=== PATIENT | female | born 1995 | race Caucasian/White ===

== ENCOUNTER → 2016-10-24 | Outpatient (CLI) | payer OTHER ==
[~2016-10-24] MED LIST: PRENTAB26 PO
== END | disposition home or self-care (01) ==
LOC: C.LABSPEC 15:49
PROVIDERS: ATTEND Obstetrics & Gynecology
DX: Z34.83 Encounter for supervision of other normal pregnancy, third trimester (principal)

== ENCOUNTER 2016-11-25 05:40 | Inpatient (IN) | payer OTHER ==
--- NOTE | 2016-11-19 14:54 | HISTORY & PHYSICAL EXAMINATION ---
DATE OF ADMISSION: 11/25/2016 CHIEF COMPLAINT: Repeat , intrauterine at 39 weeks gestation. HISTORY OF PRESENT ILLNESS: The patient is a 20-year-old 2, para 1. Her general health is good. She is only on vitamins. She has had the majority of her care in the [facility]. She has regular periods. They are a little bit on the short side, 27-28 days, last menstrual period was 02/25/2016, which gives her a due date of 12/02/2016. She states she had a first trimester ultrasound and a 20-week ultrasound, which essentially confirmed her due date of 12/02/2016. Presently being scheduled for repeat low segment section. Her obstetrical history is as follows, 2011 she went into labor at 40-1/2 weeks. She had about 14 hours labor. She pushed for over 3 hours and she was unable to bring the head down and eventually was taken to the OR where they did a with a diagnosis of cephalopelvic disproportion, she had an 8 pounds boy. PAST MEDICAL HISTORY: She has a son 4 years old in good health. No known drug allergies. She has had no medical issues. PAST SURGICAL HISTORY: She has had a previous . SOCIAL HISTORY: No smoking. No excessive alcohol intake. Works at home. FAMILY HISTORY: Mom is 52 in good health. Father at age 50 after having neck surgery. She has 2 brothers in good health. REVIEW OF SYSTEMS: HEAD: No symptoms of frequent or severe headaches. EYES: No symptoms, double vision, blurred vision. EARS: No symptoms of frequent ear infections, difficulty hearing. NOSE: No symptoms of frequent nosebleeds, difficulty breathing through her nose. PHYSICAL EXAMINATION: GENERAL: Well developed, well-nourished 20-year-old white female, alert, oriented x3 and cooperative in no acute distress, appears her stated age. EYES: Conjunctivae are pink, sclerae white, no evidence of jaundice. EARS: Had normal light reflex bilaterally. NOSE: Had normal mucosa. Septum is midline. There were no polyps. THROAT: No erythema or evidence of infection. Teeth are in good state of repair. HEAD: Was normocephalic, normal distribution of hair. NECK: Supple. Trachea midline. Thyroid is not enlarged. There is no adenopathy appreciated. Both carotids are of good intensity. CHEST: Clear to auscultation and percussion. No wheezes, rales or rhonchi appreciated. HEART: Had a regular rhythm. S1 and S2 are normal. BREASTS: Normal. ABDOMEN: Was nontender. It was consistent in size with a term sized fetus. There is a well-healed Pfannenstiel scar. PELVIC: Revealed a vertex presentation, floating. Cervix 2-3 cm. MUSCULOSKELETAL: Revealed no calf tenderness. IMPRESSIONS OF THIS CASE: Intrauterine , 39 weeks gestation, previous section due to cephalopelvic disproportion.
[2016-11-19 14:58] VITALS: BMI 28.0
[2016-11-19 15:38] LABS: BASO % 0.1 %; BASO ABS # 0.01 K/uL (0-0.2); COMPLETE YES; EOS % 0.4 %; HEMATOCRIT 37.5 % (37-47); IG% 0.3 %; LYMPH % 14.8 %; LYMPH ABS # 1.62 K/uL (1.2-3.4); MEAN CELL VOLUME 88.2 fL (80-100); MEAN CORPUSCULAR HEMOGLOBIN 29.2 pg (25-34); MEAN CORPUSCULAR HGB CONC 33.1 g/dl (32-36); MEAN PLATELET VOLUME 10.2 fL (7.4-10.4); MONO % 7.2 %; NEUT % 77.2 %; PLATELET COUNT 291 K/uL (130-400); RED BLOOD COUNT 4.25 M/uL (4.2-5.4); WHITE BLOOD COUNT 10.97 K/uL (4.8-10.8)
[2016-11-19 15:51] LABS: INR 0.9 (0.9-1.1); PROTHROMBIN TIME (PATIENT) 9.7 SECONDS (9.0-12.0)
[2016-11-19 16:06] LABS: BLOOD UREA NITROGEN 4 mg/dl (7-18); BUN/CREATININE RATIO 7.8 (10-20); CALCIUM 8.3 mg/dl (8.5-10.1); CARBON DIOXIDE 21 mmol/L (21-32); CHLORIDE 103 mmol/L (98-107); CREATININE 0.49 mg/dl (0.60-1.20); GLUCOSE 67 mg/dl (70-99); POTASSIUM 4.2 mmol/L (3.5-5.1); SODIUM 135 mmol/L (136-145)
[~2016-11-25] VITALS: Ht 165.1 cm; Wt 78.6 kg
[2016-11-25] VITALS (14 sets, daily range): BP systolic 94–104; BP diastolic 55–62; PULSE 74–101; TEMP 36.9–37; O2SAT 96–100; Ht 165.1 cm; Wt 78.6 kg
[2016-11-25] MEDS ORDERED: LACTATED RINGER'S 1000ML 1,000 ML IV ONE ×2 (05:56→07:15)
[2016-11-25] MEDS ORDERED: LACTATED RINGER'S 1000ML 1,000 ML IV SCH (06:00)
[2016-11-25] MEDS ORDERED: CITRIC ACID/SODIUM CITRATE 15 ML UDC PO SCH (06:00)
[2016-11-25] MEDS ORDERED: CEFOXITIN IV 2000 MG in DEXTROSE 5% 50ML IV SCH (06:00)
[2016-11-25 06:12] LABS: HEMATOCRIT 34.9 % (37-47); MEAN CELL VOLUME 86.6 fL (80-100); MEAN CORPUSCULAR HEMOGLOBIN 28.5 pg (25-34); PLATELET COUNT 270 K/uL (130-400); RED BLOOD COUNT 4.03 M/uL (4.2-5.4); WHITE BLOOD COUNT 9.85 K/uL (4.8-10.8)
[2016-11-25 06:35] LABS: INR 0.9 (0.9-1.1); PROTHROMBIN TIME (PATIENT) 9.7 SECONDS (9.0-12.0)
[2016-11-25 06:46] LABS: BLOOD UREA NITROGEN 6 mg/dl (7-18); BUN/CREATININE RATIO 15.2 (10-20); CALCIUM 7.7 mg/dl (8.5-10.1); CARBON DIOXIDE 21 mmol/L (21-32); CHLORIDE 107 mmol/L (98-107); CREATININE 0.41 mg/dl (0.60-1.20); GLUCOSE 83 mg/dl (70-99); POTASSIUM 3.8 mmol/L (3.5-5.1); SODIUM 139 mmol/L (136-145)
[2016-11-25] MEDS ORDERED: OXYTOCIN INJ 10 UNITS/ML VIAL ONE ×3 (07:08→08:36)
[2016-11-25] MEDS ORDERED: FENTANYL CITRATE INJ 50 MCG/1 ML 2 ML VIAL ONE (07:09)
[2016-11-25] MEDS ORDERED: MoRPHine SULFATE PF 1 MG/ML 10 ML AMP/VIAL ONE (07:10)
[2016-11-25] MEDS ORDERED: PHENYLEPHRINE HCL INJ 10 MG/ML VIAL ONE (07:13)
[2016-11-25] MEDS ORDERED: CITRIC ACID/SODIUM CITRATE 15 ML UDC PO ONE (07:15)
[2016-11-25] MEDS ORDERED: SUPERCREAM 0.870 % 15GM JAR EXT PRN (08:45)
[2016-11-25] MEDS ORDERED: HYDROCORTISONE ACETATE 25 MG SUPP PR PRN (08:45)
[2016-11-25] MEDS ORDERED: SENNA 8.6 MG TAB PO PRN (08:45)
[2016-11-25] MEDS ORDERED: BENZOCAINE 20% AER SPR 82.5 GM CAN EXT PRN (08:45)
[2016-11-25] MEDS ORDERED: MAGNESIUM HYDROXIDE SUSP 30 ML UDC PO PRN (08:45)
[2016-11-25] MEDS ORDERED: LANOLIN OINT EXT PRN ×2 (08:45)
[2016-11-25] MEDS ORDERED: DIPHTHERIA/TETANUS/PERTUSSIS 0.5 ML SYR/VIAL IM. ONE (08:45)
[2016-11-25] MEDS ORDERED: NALOXONE HCL INJ 0.08 MG in SYRINGE 1.8 ML IV PRN (08:55)
[2016-11-25] MEDS ORDERED: NALOXONE HCL INJ 1 MG in SODIUM CHLORIDE 0.9% 1000ML 1,000 ML IV PRN ×4 (08:55)
[2016-11-25] MEDS ORDERED: LACTATED RINGER'S 1000ML 500 ML IV PRN (08:55)
[2016-11-25] MEDS ORDERED: SODIUM CHLORIDE 0.9% 1000ML 1,000 ML IV PRN (08:55)
[2016-11-25] MEDS ORDERED: EpHEDrine SULFATE INJ 50 MG/ML AMP IV PRN (09:00)
[2016-11-25] MEDS ORDERED: ONDANSETRON INJ 2 MG/ML 2 ML VIAL IV PRN (09:00)
[2016-11-25] MEDS ORDERED: NALOXONE HCL 0.4 MG/1 ML VIAL/CARP IV PRN (09:00)
[2016-11-25] MEDS ORDERED: NO NARCOTICS OR SEDATIVES SCH (09:00)
[2016-11-25] MEDS ORDERED: PROMETHAZINE HCL INJ 25 MG in SODIUM CHLORIDE 0.9% 50ML 50 ML IV PRN (09:00)
[2016-11-25] MEDS ORDERED: MoRPHine SULFATE PF 1 MG/ML 10 ML AMP/VIAL EPI PRN (09:00)
[2016-11-25] MEDS ORDERED: NALBUPHINE HCL INJ 10 MG/ML AMP IV PRN (09:00)
[2016-11-25] MEDS: SIMETHICONE 80 MG CHEW PO SCH ×4 (09:20→20:08)
[2016-11-25] MEDS: DiphenhydrAMINE HCL 50 MG/ML VIAL IV PRN ×2 (09:37→15:47)
[2016-11-25] MEDS: OXYTOCIN INJ 20 UNITS in LACTATED RINGER'S 1000ML 1,000 ML IV SCH ×2 (09:54→17:33)
--- NOTE | 2016-11-25 12:46 | OPERATIVE REPORT ---
DATE OF OPERATION: 11/25/2016 PROCEDURE PERFORMED: Repeat low segment section. INDICATIONS FOR SURGERY: Intrauterine at 39 weeks' gestation and previous for CPD. POSTOPERATIVE DIAGNOSES: Same. Delivered a live male . SURGEON: Dr. Medrano. 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 ESTIMATED BLOOD LOSS: 500 mL. ANESTHESIA: Spinal. OPERATIVE FINDINGS AND PROCEDURE: The patient was brought to the OR table, correctly identified by armband and conversation. Compression stockings were applied. A Ocampo catheter was inserted in the bladder connected to gravity drainage. Then, the lower abdomen and upper thigh were painted with an alcohol based sterilizing solution, draped in the usual sterile fashion. The Pfannenstiel incision was made through a previous scar. Hemostasis was secured by electrocauterization. Fascia was incised transversely, from underlying muscle by blunt and sharp dissection. Recti muscles were in the midline, exposing the peritoneum, which was carefully raised and entered. A decision was made above the vesicouterine fold. Bladder was undermined bluntly and the uterine cavity was entered by cutting partially through with a knife and then going into the cavity with blunt-tipped scissors and then spreading the incision laterally with fingers. Vectis retractor was inserted to the head and fundal pressure was applied. Retractor popped off once, I had to reapply it and then the head was delivered. Shoulders were delivered without difficulty. Cord was clamped and cut and the was attended to by the air and hydronic balancing technician, Dr. Evans scrubbed and present at time of delivery. Cord blood was taken. The placenta was removed manually. Uterus, tubes, and ovaries were brought out through the incision. Hemostasis was good. The myometrial defect was approximated by using a continuous interlocking suture of chromic catgut to approximate the muscle, then a continuous heavy duty Vicryl suture was used to approximate the fascia over the myometrial approximation and then about 3 interrupted [id number] sutures of heavy duty Vicryl were used to complete the approximation and secure hemostasis. Peritoneal edges were then restored with 3-0 chromic. The pelvis was cleansed of all blood clots and debris. Uterus, tubes, and ovaries were reinserted into the abdominal cavity. Careful anatomical approximation of the anterior abdominal wall was performed. Peritoneum was closed with a mattress suture of chromic catgut. Recti muscles were approximated with interrupted figure of chromic catgut. The fascia was closed with continuous interlocking suture of Vicryl on each side, tied in the midline. SubQ was approximated with continuous plain and skin edges were approximated with staple clips. I attest to the content of the Intraoperative Record and any orders documented therein. Any exceptio ns are noted below.
--- NOTE | 2016-11-25 14:57 | Anesthesiology Progress Note ---
Anesthesia Post Op Note Date & Time Nov 25, 2016 at 14:57 Vital Signs Pain Intensity: 5.0 Vital Signs Past 12 Hours Date Time Temp Pulse Resp B/P Pulse Ox O2 Delivery O2 Flow Rate FiO2 11/25/16 14:00 20 99 11/25/16 13:00 20 99 11/25/16 12:20 36.9 74 22 94/55 Room Air 11/25/16 12:20 22 99 Notes Mental Status: alert / awake / arousable, participated in evaluation Pt Amnestic to Procedure: No Nausea / Vomiting: adequately controlled Pain: adequately controlled Airway Patency, RR, SpO2: stable & adequate BP & HR: stable & adequate Hydration State: stable & adequate Neuraxial Anesthesia: was administered, sensory block is resolving Anesthetic Complications: no major complications apparent
[2016-11-25] MEDS: KETOROLAC TROMETHAMINE 30 MG/ML VIAL IV. PRN (18:56)
[2016-11-25] MEDS: DOCUSATE SODIUM 100 MG CAP PO SCH (20:08)
[2016-11-26 00:30] VITALS: O2SAT 98
[2016-11-26 01:30] VITALS: O2SAT 98
[2016-11-26] MEDS: OXYTOCIN INJ 20 UNITS in LACTATED RINGER'S 1000ML 1,000 ML IV SCH (02:07)
[2016-11-26] MEDS: KETOROLAC TROMETHAMINE 30 MG/ML VIAL IV. PRN (02:10)
[2016-11-26 03:00] VITALS: O2SAT 99
[2016-11-26] MEDS ORDERED: DC INTRASPINAL MORPHINE ONE (03:00)
[2016-11-26] MEDS ORDERED: ONDANSETRON INJ 2 MG/ML 2 ML VIAL IV PRN (03:00)
[2016-11-26] MEDS ORDERED: DiphenhydrAMINE HCL 50 MG/ML VIAL IV PRN ×2 (03:00→09:00)
[2016-11-26] MEDS ORDERED: KETOROLAC TROMETHAMINE 30 MG/ML VIAL IV. PRN (03:00)
[2016-11-26] MEDS ORDERED: OXYCODONE/ACETAMINOPHEN 5-325 TAB PO PRN (03:00)
[2016-11-26] MEDS ORDERED: MEPERIDINE HCL 50 MG/ML CARP IV PRN (03:00)
[2016-11-26] MEDS ORDERED: MEPERIDINE HCL 75 MG/ML CARP IV PRN (03:00)
[2016-11-26] MEDS ORDERED: ZOLPIDEM TARTRATE 5 MG TAB PO PRN (03:00)
[2016-11-26 04:30] VITALS: BP 96/57; PULSE 89; TEMP 36.7; O2SAT 99
[2016-11-26] MEDS ORDERED: CEFOXITIN IV 2,000 MG in DEXTROSE 5% 50ML 50 ML IV SCH (06:00)
[2016-11-26 06:06] LABS: BASO % 0.1 %; BASO ABS # 0.01 K/uL (0-0.2); COMPLETE YES; EOS % 0.4 %; HEMATOCRIT 30.8 % (37-47); IG% 0.2 %; LYMPH % 9.3 %; MEAN CELL VOLUME 88.3 fL (80-100); MEAN CORPUSCULAR HEMOGLOBIN 29.2 pg (25-34); MEAN CORPUSCULAR HGB CONC 33.1 g/dl (32-36); MONO % 8.2 %; NEUT % 81.8 %; PLATELET COUNT 243 K/uL (130-400); RED BLOOD COUNT 3.49 M/uL (4.2-5.4); WHITE BLOOD COUNT 15.04 K/uL (4.8-10.8)
[2016-11-26 07:20] VITALS: BP 103/58; PULSE 88; TEMP 36.7; O2SAT 98
[2016-11-26] MEDS: DOCUSATE SODIUM 100 MG CAP PO SCH ×2 (07:54→20:14)
[2016-11-26] MEDS: FERROUS SULFATE 325 MG TAB PO SCH (07:54)
[2016-11-26] MEDS: SIMETHICONE 80 MG CHEW PO SCH ×4 (07:54→20:14)
[2016-11-26] MEDS: PRENATAL VITAMIN TAB PO SCH (07:54)
[2016-11-26] MEDS: IBUPROFEN 600 MG TAB PO PRN ×2 (07:56→18:06)
[2016-11-26] MEDS: OXYCODONE/ACETAMINOPHEN 5-325 TAB PO PRN ×3 (09:22→22:21)
--- NOTE | 2016-11-26 11:44 | Progress Note ---
Subjective Nov 26, 2016. Subjective conversation w/ patient Ambulation: ambulating normally Voiding: no voiding problems Passing Gas: Yes Diet Tolerance: Regular Diet Lochia: Small Feeding Type: Breast Feeding Review of Systems Constitutional: + fever Objective Vital Signs Date Time Temp Pulse Resp B/P Pulse Ox O2 Delivery O2 Flow Rate FiO2 11/26/16 08:30 Room Air 11/26/16 07:20 36.7 88 18 103/58 98 Room Air 11/26/16 04:30 36.7 89 18 96/57 99 Room Air 11/26/16 03:00 18 99 11/26/16 01:30 18 98 11/26/16 00:30 16 98 11/25/16 23:30 Room Air 11/25/16 23:30 37.0 101 18 104/60 98 Room Air 11/25/16 23:30 18 98 11/25/16 23:00 16 96 11/25/16 22:00 16 98 11/25/16 21:00 18 98 11/25/16 20:00 37.0 80 18 101/57 98 Room Air 11/25/16 20:00 18 98 11/25/16 19:00 18 99 11/25/16 18:00 16 100 11/25/16 17:00 20 99 11/25/16 16:00 16 99 11/25/16 15:35 99 Room Air 11/25/16 15:35 36.9 74 16 99/62 99 Room Air 11/25/16 15:00 16 100 11/25/16 14:00 20 99 11/25/16 13:00 20 99 11/25/16 12:20 36.9 74 22 94/55 Room Air 11/25/16 12:20 22 99 Physical Exam General Appearance: WELL-APPEARING Respiratory/Chest: lungs clear Abdomen: normal bowel sounds, non tender Fundus: Firm, Non-Tender Incision Description: Clean, Dry & Intact Extremities: no pedal edema, no calf tenderness Laboratory Results Last 24 Hours Test 11/26/16 05:50 White Blood Count 15.04 K/uL Red Blood Count 3.49 M/uL Hemoglobin 10.2 g/dL Hematocrit 30.8 % Mean Corpuscular Volume 88.3 fL Mean Corpuscular Hemoglobin 29.2 pg Mean Corpuscular Hemoglobin Concent 33.1 g/dl Platelet Count 243 K/uL Mean Platelet Volume 10.0 fL Neutrophils (%) (Auto) 81.8 % Lymphocytes (%) (Auto) 9.3 % Monocytes (%) (Auto) 8.2 % Eosinophils (%) (Auto) 0.4 % Basophils (%) (Auto) 0.1 % Neutrophils # (Auto) 12.31 K/uL Lymphocytes # (Auto) 1.40 K/uL Monocytes # (Auto) 1.23 K/uL Eosinophils # (Auto) 0.06 K/uL Basophils # (Auto) 0.01 K/uL RDW Standard Deviation 45.6 fL RDW Coefficient of Variation 14.1 % Immature Granulocyte % (Auto) 0.2 % Immature Granulocyte # (Auto) 0.03 K/uL Assessment and Plan Post-Op Day#: 1
[2016-11-26 16:02] VITALS: BP 102/64; PULSE 87; TEMP 36.8; O2SAT 99
[2016-11-26] MEDS ORDERED: BISACODYL 5 MG TABEC PO ONE (22:00)
[2016-11-27 00:45] VITALS: BP 100/65; PULSE 96; TEMP 36.7
[2016-11-27] MEDS: IBUPROFEN 600 MG TAB PO PRN ×3 (01:24→20:12)
[2016-11-27 07:45] VITALS: BP 96/60; PULSE 79; TEMP 36.4; O2SAT 99
[2016-11-27] MEDS: PRENATAL VITAMIN TAB PO SCH (08:03)
[2016-11-27] MEDS: DOCUSATE SODIUM 100 MG CAP PO SCH ×2 (08:03→20:11)
[2016-11-27] MEDS: OXYCODONE/ACETAMINOPHEN 5-325 TAB PO PRN ×3 (08:03→20:12)
[2016-11-27] MEDS: FERROUS SULFATE 325 MG TAB PO SCH (08:03)
[2016-11-27] MEDS: SIMETHICONE 80 MG CHEW PO SCH ×4 (08:03→20:12)
--- NOTE | 2016-11-27 08:07 | Progress Note ---
Subjective Nov 27, 2016. Subjective conversation w/ patient Ambulation: ambulating normally Voiding: no voiding problems Passing Gas: Yes Diet Tolerance: Regular Diet Lochia: Small Feeding Type: Breast Feeding Review of Systems Constitutional: + fever Objective Vital Signs Date Time Temp Pulse Resp B/P Pulse Ox O2 Delivery O2 Flow Rate FiO2 11/27/16 07:45 36.4 79 18 96/60 99 Room Air 11/27/16 00:45 Room Air 11/27/16 00:45 36.7 96 18 100/65 Room Air 11/26/16 16:02 Room Air 11/26/16 16:02 36.8 87 17 102/64 99 Room Air 11/26/16 08:30 Room Air Physical Exam General Appearance: WELL-APPEARING Abdomen: normal bowel sounds, non tender Fundus: Firm, Non-Tender Incision Description: Clean, Dry & Intact Extremities: no pedal edema, no calf tenderness Assessment and Plan Post-Op Day#: 2
[2016-11-27] MEDS ORDERED: BISACODYL 10 MG SUPP PR PRN (08:45)
[2016-11-27 15:45] VITALS: BP 98/63; PULSE 94; TEMP 36.7; O2SAT 98
[2016-11-28 00:25] VITALS: BP 116/73; PULSE 93; TEMP 37; O2SAT 99
[2016-11-28] MEDS: OXYCODONE/ACETAMINOPHEN 5-325 TAB PO PRN ×3 (00:32→11:16)
[2016-11-28] MEDS: IBUPROFEN 600 MG TAB PO PRN ×3 (00:32→11:16)
[2016-11-28 08:00] VITALS: BP 122/75; PULSE 101; TEMP 37.2; O2SAT 97
[2016-11-28] MEDS: SIMETHICONE 80 MG CHEW PO SCH ×2 (08:10→11:17)
[2016-11-28] MEDS: PRENATAL VITAMIN TAB PO SCH (08:10)
[2016-11-28] MEDS: FERROUS SULFATE 325 MG TAB PO SCH (08:10)
[2016-11-28] MEDS: DOCUSATE SODIUM 100 MG CAP PO SCH (08:10)
--- NOTE | 2016-11-28 12:02 | Progress Note ---
Subjective Nov 28, 2016. Subjective conversation w/ patient Ambulation: ambulating normally Voiding: no voiding problems Passing Gas: Yes Diet Tolerance: Regular Diet Lochia: Small Feeding Type: Breast Feeding Review of Systems Constitutional: + fever Objective Vital Signs Date Time Temp Pulse Resp B/P Pulse Ox O2 Delivery O2 Flow Rate FiO2 11/28/16 08:00 Room Air 11/28/16 08:00 37.2 101 16 122/75 97 Room Air 11/28/16 00:25 99 Room Air 11/28/16 00:25 37.0 93 20 116/73 99 Room Air 11/27/16 15:45 36.7 94 16 98/63 98 Room Air 11/27/16 15:45 Room Air Physical Exam General Appearance: WELL-APPEARING Respiratory/Chest: lungs clear Abdomen: normal bowel sounds, non tender Fundus: Firm, Non-Tender Incision Description: Clean, Dry & Intact Extremities: no pedal edema, no calf tenderness Assessment and Plan Post-Op Day#: 3
--- NOTE | 2016-11-28 12:05 | Discharge Instructions ---
Discharge Instructions Date of Service Nov 28, 2016. Admission Reason for Admission: Term , Previous Section Discharge Discharge Diagnosis / Problem: prior section term Discharge Goals Goal(s): Routine recovery after Activity Recommendations Activity Limitations: as noted below ACTIVITY RECOMMENDATIONS: * Gradual return to full activity over the next 2-3 weeks. * No lifting - nothing heavier than baby over the next 2-3 weeks. * Do not engage in vigorous exercise, sexual activity or sports for 6 weeks. * Do not drive or operate any motorized equipment for 14 days. * You may shower/bathe daily. DIET: Resume Previous Diet If Breast-feeding: * Increase caloric intake by 500 calories, eat 3 well balanced meals, 2 high protein snacks a day and drink 6-8 8oz. glasses of fluid per day. BREAST CARE: If you are not breast feeding: * Wear a supportive bra 24 hours a day for one to two weeks. * Avoid stimulating your breasts and nipples as much as possible during the first few weeks after delivery. * When taking a shower, have the warm water hit your back, not breasts. * When your breasts feel full, apply ice packs. Usually three to four times a day helps ease the discomfort. * Take a mild pain medication (Tylenol / Motrin) when you are uncomfortable. If breast feeding: * Use breast milk to lubricate nipples. Lansinoh cream may be used for sore nipples. You do not need to remove cream prior to breast feeding. If using a different brand of cream, check the label for directions regarding removal of cream prior to nursing. * Wear a supportive bra. * If having problems with breasts or breast feeding, call a database reporting consultant or your health care provider. VITAMINS: * One tablet daily. Continue taking while or until you have your check up in 6 weeks. SPECIAL CARE INSTRUCTIONS: * Vaginal rest (no tampons, douching, intercourse) until after doctor's visit. * control as discussed with doctor. * Verbalizes understanding of car seat law as reviewed with patient by nursing. * Car Seat hand-out given and reviewed with patient by nursing. * Shaken baby information reviewed with patient by nursing. Call you doctor if: * Heavy bleeding (saturating a pad an hour) or passing clots the size of your fist. Bleeding has a foul smelling odor. * A fever greater than 100.4 degrees F (38 degrees C) on two occasions four hours apart and/or chills. * Unusual pain in the pelvic or vaginal areas. Pain should improve each day . * Call the doctor for any increased redness, drainage or swelling around the incision and any pain unrelieved by prescribed pain medication. * Signs and symptoms of phlebitis(possible blood clots forming in the veins): leg pain, warm, red or swollen area on leg. * "Baby Blues" lasting longer than two weeks. If you have any questions or concerns, call your health care practitioner at [phone]. FOLLOW-UP VISIT: Follow-up visit for examination in 6 weeks. Incision check (staple removal) in 1 week. Please call office at [phone] if not already scheduled. . Current Hospital Diet Patient's current hospital diet: Regular OB Diet Discharge Diet Recommended Diet: Regular Diet Procedures Procedures Performed: Repeat low uterine transverse Caesarean section; delivey of live male child at 0802. Pending Studies Studies pending at discharge: no Medical Emergencies . Who to Call and When: Medical Emergencies: If at any time you feel your situation is an emergency, please call 911 immediately. . Non-Emergent Contact Non-Emergency issues call your: Entry Level Software Developer Call Non-Emergent contact if: temperature is above 100.5 . . "Provider Documentation" section prepared by Cruzito Medrano. VTE Core Measure Inpt VTE Proph given/why not?: Treatment not indicated
--- NOTE | 2016-11-28 12:26 | DISCHARGE SUMMARY ---
DATE OF DISCHARGE: 11/28/2016. Mrs. Dorado was admitted with intrauterine with an estimated gestational age of over 39 weeks. She had a previous section for cephalopelvic disproportion. This was done in the [facility]. I first started to take care of Mrs. Dorado when she was about 35 weeks gestation. I tried to get her prior records from her previous doctor and was unsuccessful despite several attempts. I dated her primarily through the history and questioning her about when she had her ultrasounds done and what date they gave her due date. I also used the latter date to ensure that the baby would be mature. She was brought in with an estimated date of over 39 weeks as best as I could tell. Her cervix was already opened to about 2-3 cm at this point and she underwent low segment section. Surgery went well. Blood loss was minimal. Her preoperative hemoglobin was 12.4, hematocrit 37.5. Postoperative hemoglobin was 11.5, hematocrit 34.9. She had a very smooth postoperative course. Bowel sounds returned promptly. She remained afebrile. On the first postoperative day, bandage was removed. Incision looked clean and dry. On the third postoperative day, she was ambulating well, eating well. She has been afebrile. She also had been given prescriptions for Percocet and Motrin for pain control and she was discharged to be followed at home and office and asked to call the office and return the following week for removal of lisa.
[2016-11-28 13:21] VITALS: BP_DIAS 75; PULSE 101; TEMP 37.2
== END 2016-11-28 13:45 | disposition home or self-care (01) | DRG 766 ==
LOC: C.LD 05:40 → EDSTATUS 07:00 → C.OBG 12:58
PROVIDERS: ADMIT Obstetrics & Gynecology; ATTEND Obstetrics & Gynecology
PROC: 10D00Z1 Extraction of Products of Conception, Low, Open Approach (ICD-10-PCS; principal; 2016-11-25 07:30)
DX: O34.219 Maternal care for unspecified type scar from previous cesarean delivery (principal); Z3A.39 39 weeks gestation of pregnancy; Z37.0 Single live birth; O33.9 Maternal care for disproportion, unspecified

== ENCOUNTER → 2017-12-30 | Outpatient (CLI) | payer OTHER | END | disposition home or self-care (01) | LOC: C.LABSPEC 14:24 | PROVIDERS: ATTEND Obstetrics & Gynecology | DX: Z34.81 Encounter for supervision of other normal pregnancy, first trimester (principal) ==

== ENCOUNTER → 2017-12-30 | Outpatient (CLI) | payer OTHER | END | disposition home or self-care (01) | LOC: C.PAPS 15:08 | PROVIDERS: ATTEND Obstetrics & Gynecology | DX: Z39.2 Encounter for routine postpartum follow-up (principal); R87.613 High grade squamous intraepithelial lesion on cytologic smear of cervix (HGSIL) ==

== ENCOUNTER → 2018-04-27 | Outpatient (CLI) | payer OTHER | END | disposition home or self-care (01) | LOC: C.LAB 07:39 | PROVIDERS: ATTEND Obstetrics & Gynecology | DX: Z13.1 Encounter for screening for diabetes mellitus (principal); Z3A.00 Weeks of gestation of pregnancy not specified ==